=== PATIENT | female | born 1965 | race Caucasian/White ===

== ENCOUNTER 2020-06-04 09:38 | Outpatient (CLI) | payer OTHER, SELFPAY ==
--- NOTE | ~2020-06-04 | MM_ITS ---
EXAMINATION: MM screening [facility] BI w chandana HISTORY: Screening TECHNIQUE: Craniocaudal and mediolateral oblique 3-D tomosynthesis images were obtained and synthetic 2-D images were generated. CAD analysis was submitted and interpreted. COMPARISON: Comparison to multiple prior studies sequentially, with oldest reviewed study dated 07/19. BREAST PARENCHYMAL COMPOSITION: There are scattered areas of fibroglandular density. FINDINGS: There is no evidence of suspicious mass, calcification, or architectural distortion to sugg est malignancy in either breast. There has been no suspicious interval change. IMPRESSION: 1. No mammographic evidence of malignancy. 2. Recommend routine screening mammography in one year. BI-RADS Category 1: Negative Reviewed, dictated and finalized at location A.
== END 2020-06-04 09:39 | disposition home or self-care (01) ==
LOC: ANHIMG 09:40
PROVIDERS: PCP Nurse Practitioner Adult Health; Visit Provider Nurse Practitioner Adult Health
DX: Z12.31 Encounter for screening mammogram for malignant neoplasm of breast (principal)
CPT/HCPCS: 77063; 77067

== ENCOUNTER 2021-03-25 14:43 | Emergency (ER) | payer OTHER, SELFPAY ==
[2021-03-25 15:00] VITALS: BP 147/80; PULSE 82; RESP 18; TEMP 36.6; O2SAT 98
--- NOTE | 2021-03-25 15:22 | ED.SKABFB ---
HPI - Skin/Abscess/Foreign Bdy General Chief complaint: Skin/Abscess/Foreign Body Stated complaint: pet bite Time Seen by Provider: 03/25/21 15:12 Source: patient and RN notes reviewed Mode of arrival: ambulatory Limitations: no limitations History of Present Illness HPI narrative: Patient presents today complaining of a cat bite to her right second finger that was sustained yesterday by her own cat at home while she was giving medication. She reports increased pain and swelling today. Reports some numbness to the tip of the finger as well. She currently rates her pain 3/10, which increases with touching. She has been cleaning with peroxide and applying Neosporin without much relief. She is up-to-date on her tetanus vaccine. MD complaint: other (Animal bite) Related Data Home Medications Medication Instructions Recorded Confirmed adrenal cortex (porcine) [Adrenal] 80 mg PO DAILY 03/25/21 03/25/21 albuterol sulfate [ProAir HFA] 1 inh INHALATION DIRECTED 03/25/21 03/25/21 atomoxetine [Strattera] 100 mg PO DAILY 03/25/21 03/25/21 atorvastatin [Lipitor] 10 mg PO DAILY 03/25/21 03/25/21 cetirizine [Zyrtec] 10 mg PO DAILY 03/25/21 03/25/21 diltiazem HCl 180 mg PO DAILY 03/25/21 03/25/21 exenatide microspheres [Bydureon 2 mg SUBCUT DIRECTED 03/25/21 03/25/21 BCise] fluticasone propionate [Flonase] 1 spray INTRANASAL DAILY 03/25/21 03/25/21 magnesium 400 mg PO DAILY 03/25/21 03/25/21 melatonin 10 mg PO HS 03/25/21 03/25/21 metformin 500 mg PO QID 03/25/21 03/25/21 [id number] K 1 tablet PO DAILY 03/25/21 03/25/21 [Adults Multivitamin] omeprazole 40 mg PO DAILY 03/25/21 03/25/21 vortioxetine [Trintellix] 10 mg PO DAILY 03/25/21 03/25/21 Allergies Allergy/AdvReac Type Severity Reaction Status Date / Time benzocaine Allergy Severe RED, SORE, Verified 01/27/19 16:22 SWOLLEN THROAT AND UVULA fluconazole Allergy Mild Verified 01/27/19 16:22 Quinolones Allergy Mild Verified 01/27/19 16:22 Sulfa (Sulfonamide Allergy Mild Verified 01/27/19 16:22 Antibiotics) duloxetine Allergy Unknown Verified 01/27/19 16:22 moxifloxacin Allergy Unknown Verified 01/27/19 16:22 estrogens, conjugated Allergy Hives Verified 03/25/21 15:08 [From Premarin] Review of Systems Review of Systems: CONSTITUTIONAL: Denies body aches, fever, chills, or sweats. EYES: Denies visual changes, redness, or discharge. ENT: Denies rhinorrhea, congestion, sore throat, or otalgia. CARDIOVASCULAR: Denies chest pain, palpitations, or edema. RESPIRATORY: Denies cough or dyspnea. GASTROINTESTINAL: Denies abdominal pain, nausea, vomiting, or diarrhea. GENITOURINARY: Denies dysuria or hematuria. SKIN: Denies rash, itching. + Cat bite MUSCULOSKELETAL: Denies back pain, joint pain, or myalgia. NEUROLOGIC: Denies headache, numbness, tingling, or weakness. PSYCH: Denies depression or anxiety. [facility] Past Medical History Medical History (Updated 03/25/21 @ 15:27 by Jacquelyn Hogan, [facility], ) Depression High cholesterol Family History Family History Mother Family history of obesity Hypertension Family history of osteoarthritis Family history of elevated blood lipids Family history of diabetes mellitus in first degree relative Sibling Hypertension Family history of diabetes mellitus in first degree relative Social History Social History Smoking status: Never smoker Alcohol intake: never Comments At time of signature, I have reviewed and agree with nursing past medical, surgical, social and family history unless otherwise noted. Please see nursing chart for further information. There is no relevant family history pertinent to the presenting complaint Exam Narrative: GENERAL: Well-appearing, well-nourished, and in no acute distress. HEAD: Normocephalic, atraumatic. EYES: EOMI.
== END 2021-03-25 15:36 | disposition home or self-care (01) ==
PROVIDERS: Emergency Provider Nurse Practitioner; PCP Nurse Practitioner Adult Health
DX: S61.230A Puncture wound without foreign body of right index finger without damage to nail, initial encounter (principal); W55.01XA Bitten by cat, initial encounter; E78.00 Pure hypercholesterolemia, unspecified
CPT/HCPCS: 99213; G0463